=== PATIENT | male | born 1995 | race African-American/Black ===

== ENCOUNTER 2017-06-13 20:07 | Emergency (ER) | payer OTHER, SELFPAY | END 2017-06-13 20:57 | disposition home or self-care (01) | LOC: BURERS 20:07 | DX: J02.9 Acute pharyngitis, unspecified (principal) | CPT/HCPCS: 87081; 87430; 99283 ==

== ENCOUNTER 2024-03-17 10:37 | Emergency (ER) | payer MEDICAID, SELFPAY ==
[2024-03-17] MEDS ORDERED: Ibuprofen 200 MG TAB ONE (11:46)
== END 2024-03-17 12:00 | disposition home or self-care (01) ==
LOC: BURERS 10:37
DX: S63.613A Unspecified sprain of left middle finger, initial encounter (principal); S63.615A Unspecified sprain of left ring finger, initial encounter; X50.0XXA Overexertion from strenuous movement or load, initial encounter; Y93.89 Activity, other specified

== ENCOUNTER 2025-05-20 00:45 | Emergency (ER) | payer MEDICAID, OTHER ==
[2025-05-20] MEDS ORDERED: predniSONE 20 MG TAB ONE (02:34)
== END 2025-05-20 02:49 | disposition home or self-care (01) ==
LOC: BURERS 00:45
DX: J98.4 Other disorders of lung (principal); E11.9 Type 2 diabetes mellitus without complications; I10 Essential (primary) hypertension; E66.9 Obesity, unspecified; F17.210 Nicotine dependence, cigarettes, uncomplicated; Z79.899 Other long term (current) drug therapy
CPT/HCPCS: 70360; 71045; J7512; J7620

== ENCOUNTER 2025-08-11 14:26 | Emergency (ER) | payer MEDICAID, OTHER ==
[2025-08-11] MEDS ORDERED: predniSONE 20 MG TAB ONE (15:16)
== END 2025-08-11 15:20 | disposition home or self-care (01) ==
LOC: BURERS 14:26
DX: J02.0 Streptococcal pharyngitis (principal); E11.9 Type 2 diabetes mellitus without complications; F17.210 Nicotine dependence, cigarettes, uncomplicated; Z79.899 Other long term (current) drug therapy
CPT/HCPCS: 99283; J7512